=== PATIENT | male | born 1965 | race Caucasian/White ===

== ENCOUNTER 2021-06-29 00:04 | Emergency (ER) | payer MEDICARE, SELFPAY ==
[2021-06-29 00:08] VITALS: BP 160/83; PULSE 93; RESP 16; TEMP 36.1; O2SAT 96; BMI 33.2
--- NOTE | 2021-06-29 03:02 | EDS_ITS ---
HPI History of Present Illness Chief Complaint: Eye Problem Informant: patient Onset/Context/Timing Location: Left Eye Onset: Days (6) Context: Gradual Onset Timing: Continuous Current Severity: Severe Worsened by: Light Relieved by: [id number] eyedrops Associated Symptoms Associated Symptoms - Eyes: Crusting, Drainage, Eyelid swelling, Foreign body sensation, Matting, Pain, Photophobia and Redness History of injury: Yes and Grinding injury Visual correction: Glasses Narrative Narrative: Patient presents with left eye pain that has been constant for the past 6 days. Patient states he was grinding 6 days ago and thinks something got into his eye. Patient states he was using safety glasses. Patient admits to some matting and crusting. Patient admits to watery drainage. Patient states it feels like there is still something in his eye. Patient states the pain is worse with light. Patient states pain is better with eyedrops that he was using. Patient denies any blurry vision or double vision. [facility] Medical History (Updated 06/29/21 @ 09:[address] Harinder Frausto DO) Hypertension Home Medications Unobtainable 06/29/21 [History Last Taken Unknown] Allergy/AdvReac Type Severity Reaction Status Date / Time No Known Allergies Allergy Verified 06/29/21 00:07 Surgical History (Updated 06/29/21 @ 09:[address] Harinder Frausto DO) S/P cervical spinal fusion Social History Smoking Status: Current every day smoker tobacco type: cigarettes ROS ROS ED Constitutional Constitutional ED: Denies chills or fever(s) Eyes Eyes: Denies blurry vision or change in vision ENT ENT ED: Denies rhinorrhea or sore throat Cardiovascular Cardiovascular: Denies chest pain or palpitations Respiratory/Chest Respiratory/Chest: Denies cough or dyspnea Gastrointestinal Gastrointestinal: Denies nausea or vomiting Genitourinary Genitourinary ED: Denies dysuria or hematuria Musculoskeletal Musculoskeletal: Reports back pain and neck pain Integumentary Denies abscess or rash Neurologic Neurologic: Denies headache(s) or weakness Allergic/Immunologic Allergic/Immunologic ED: Denies mouth swelling or urticaria EXAM Physical Exam Const Vital Signs: 06/29/21 00:08 Temperature 97 F L Temperature Source Temporal Pulse Rate 93 Respiratory Rate 16 Blood Pressure 160/83 H Blood Pressure Mean 108 Pulse Ox 96 Positive well nourished, well developed and obese General Appearance ED: well developed Nutritional Appearance: obese HEENT atraumatic; Negative for tenderness Eyes Alignment: alignment normal Eyelid: eyelids abnormal left upper eyelid swelling and left lower eyelid swelling Conjunctiva: conjunctiva abnormal left Details: injection Cornea: cornea abnormal Positive for left Cornea - Left Eye: Positive for abrasion Details: Positive for at clock position (9:00) and foreign body Details: Positive for metal and rust ring present and fluorescein used Pupil: PERRL and accommodation reflex normal EOM: Negative for EOM abnormal Slit Lamp: slit lamp exam performed with fluorescein, lids/lashes/lacrimal system normal appearing and anterior chamber normal appearing Neck supple and no JVD Neuro oriented x3, CN's II-XII intact bilaterally, moves all extremities and no sensory deficits noted Sensorium / Orientation: alert Motor Exam: strength 5/5 throughout MDM MDM MDM Narrative Medical decision making narrative: Tetracaine and fluorescein dye was applied. An ophthalmic bur was used to remove the foreign body. Rust ring was also partially removed. Patient was unable to tolerate further removal of the rust ring. Patient was given Cyclogyl. Patient was also given erythromycin ointment. 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 Patient and family understood and were agreeable with the plan. All questions were answered. Discharge Plan Triage Chief Complaint: Eye Problem ED Provider: Harinder Frausto Dx/Rx/DC Orders Clinical Impression: Acute foreign body of left cornea Instructions: ED Corneal Abrasion, ED Corneal Foreign Body, Removed Prescriptions: No Action Unobtainable RF: 0 Referrals: [facility] [Other] - 3-5 Days Disposition Disposition: Home, Self Care Discharge Date/Time: 06/29/21 03:28
[2021-06-29] MEDS: Tetracaine 0.5% Ophthalmic Bottle 1 DRP OPHTHALMIC (03:07)
[2021-06-29] MEDS: Fluorescein 1 MG STRIP 1 STRIP OPHTHALMIC (03:07)
[2021-06-29] MEDS: Cyclopentolate 1% 2 ML Bottle 1 DRP LEFT EYE (03:21)
[2021-06-29] MEDS: Erythromycin Base 1 OPTH.TUBE 1 APPLIC LEFT EYE (03:21)
== END 2021-06-29 03:28 | disposition home or self-care (01) ==
PROVIDERS: Emergency Provider Emergency Medicine
DX: T15.02XA Foreign body in cornea, left eye, initial encounter (principal); W45.8XXA Other foreign body or object entering through skin, initial encounter; I10 Essential (primary) hypertension; F17.210 Nicotine dependence, cigarettes, uncomplicated
CPT/HCPCS: 99282